=== PATIENT | female | born 1970 | race Caucasian/White ===

== ENCOUNTER 2016-10-23 08:24 | Outpatient (CLI) | payer BC | END 2016-10-23 08:25 | disposition home or self-care (01) | DX: Z12.31 Encounter for screening mammogram for malignant neoplasm of breast (principal) ==

== ENCOUNTER 2016-11-19 10:55 | Outpatient (CLI) | payer BC | END 2016-11-19 10:56 | disposition home or self-care (01) | DX: R10.13 Epigastric pain (principal) ==

== ENCOUNTER 2017-02-04 11:20 | Outpatient (CLI) | payer BC | END 2017-02-04 11:21 | LOC: LAB.WCP 11:20 | PROVIDERS: ATTEND Physician Assistant Medical | DX: R39.15 Urgency of urination (principal) | CPT/HCPCS: 87086 ==

== ENCOUNTER 2017-10-21 17:47 | Outpatient (CLI) | payer BC ==
[2017-10-21] MEDS ORDERED: IOPAMIDOL-300 100 ML VIAL ONE (18:06)
[2017-10-21] MEDS ORDERED: IOPAMIDOL-300 100 ML VIAL IVP ONE (18:36)
--- NOTE | 2017-10-21 20:00 | CT Preliminary Report ---
Exam: CT HEAD W/WO Impression: 1. Unremarkable head CT. No evidence of hemorrhage, space-occupying mass lesion, dural venous sinus t hrombosis or other intracranial cause for headaches. 2. There is sclerosis in the mastoids bilaterally, possibly representing the sequela of prior infecti on. No imaging findings are concerning for active mastoiditis or otitis media. SITE ID: [id number]
--- NOTE | 2017-10-21 20:33 | CT Report ---
CT HEAD WITHOUT AND WITH CONTRAST INDICATION: 46-year-old female with headache (right side of head behind the ear) since Thursday at 060 0 hrs. Concern for possible mastoiditis. TECHNIQUE: Sequential 5 mm axial images were obtained through the brain, prior to and following intravenous admi nistration of 80 mL Isovue-[address] contrast. In accordance with CT protocol optimization, one or more of the following dose reduction techniques w ere utilized for this exam: automated exposure control, adjustment of mA and/or KV based on patient s ize, or use of iterative reconstructive technique. COMPARISON: None. FINDINGS: Ventricular size is normal. Attenuation of cortex and white matter appears normal. No intracranial he morrhage or abnormal extra-axial fluid collection. No mass-effect or midline shift. No enhancing space-occupying mass lesion is demonstrated. There appears to be normal intravascular co ntrast enhancement in the dural venous sinuses and deep venous structures. This effectively excludes the possibility of venous thrombosis. The skull and skull base appear intact. The right mastoid is poorly pneumatized. There is sclerosis, laterally and inferiorly, possibly representing the sequela of a prior infection. No significant effu emerson is demonstrated. No evidence of bone destruction, overlying soft tissue swelling or other specif ic finding to suggest active infection. The middle ear cavity appears clear. There is sclerosis later ally in the left mastoid, also possibly the sequela of a prior infection. The left mastoid is better pneumatized than the right mastoid. The air cells are clear. The left middle ear cavity appears clear . The paranasal sinuses are clear. Noted, is a small sclerotic focus in the medullary bone of the neck for the condyle for right hemiman dible (see image 7 of series 4 and image 19 of series 9) most likely representing a benign bone islan d. The possibility of a blastic-type metastasis is considered unlikely unless there is a history of k nown, primary malignancy in this patient. IMPRESSION: 1. Unremarkable head CT. No evidence of a hemorrhage, space-occupying mass lesion, dural venous sinus thrombosis or other intracranial cause for headaches. 2. There is sclerosis in the mastoids bilaterally, possibly representing the sequela of prior infecti on. No imaging findings concerning for active mastoiditis or otitis media. The call report notification system was initiated by Dr. Zack Das at 19:51 hrs on 10/21/17. A preliminary report for this examination was called to Tiffany Hector PA-C, following interpretat ion on 10/21/2017 at approximately 1956 hrs. Referring Provider Line: [phone] SITE ID: [id number]
== END 2017-10-21 17:48 | disposition home or self-care (01) ==
LOC: DI 17:47
PROVIDERS: ATTEND Physician Assistant Medical
DX: R51 Headache (principal)
CPT/HCPCS: 70470; Q9967

== ENCOUNTER 2020-01-30 16:54 | Outpatient (CLI) | payer BC | END 2020-01-30 16:55 | disposition EMS.NT | LOC: EMS 16:54 | PROVIDERS: ATTEND Surgery | DX: R10.10 Upper abdominal pain, unspecified (principal) ==

== ENCOUNTER 2020-02-01 12:20 | Outpatient (CLI) | payer BC ==
[2020-02-01 12:42] LABS: BASOPHILS % (AUTO) 0.6 %; EOSINOPHILS # (AUTO) 0.1 10^3/uL (0.0-0.7); EOSINOPHILS % (AUTO) 1.4 %; HGB - HEMOGLOBIN 14.3 g/dL (12.0-16.0); LYMPHOCYTES # (AUTO) 1.8 10^3/uL (1.5-3.5); LYMPHOCYTES % (AUTO) 27.1 %; MEAN CORPUSCULAR HEMOGLOBIN 32.1 pg (27.0-31.0); MEAN CORPUSCULAR HGB CONC 34.1 g/dL (32.0-36.0); MEAN CORPUSCULAR VOLUME 93.9 fL (81.0-99.0); MEAN PLATELET VOLUME 9.5 fL (7.9-10.8); MONOCYTES # (AUTO) 0.3 10^3/uL (0.0-1.0); MONOCYTES % (AUTO) 4.8 %; NEUTROPHILS # (AUTO) 4.3 10^3/uL (1.5-6.6); NEUTROPHILS % (AUTO) 65.6 %; PLT - PLATELET COUNT 269 10^3/uL (130-450); RED BLOOD COUNT 4.46 10^6/uL (4.20-5.40); RED CELL DISTRIBUTION WIDTH 12.9 % (12.0-15.0); WHITE BLOOD COUNT 6.5 x10^3/uL (4.8-10.8)
[2020-02-01 13:00] LABS: ALBUMIN 4.2 g/dL (3.2-5.5); ALBUMIN/GLOBULIN RATIO 1.2 (1.0-2.2); CALCIUM 8.8 mg/dL (8.5-10.3); CREATININE 0.9 mg/dL (0.4-1.0); TOTAL PROTEIN 7.7 g/dL (6.7-8.2)
[2020-02-01] MEDS ORDERED: IOVERSOL 320 100 ML VIAL IVP ONE ×2 (13:12→16:33)
--- NOTE | 2020-02-01 13:46 | CT Report ---
PROCEDURE: ABDOMEN W INDICATIONS: EPIGASTRIC,RUQ PAIN CONTRAST: IV CONTRAST: Optiray 320 ml: 100 PO CONTRAST: *NO PO CONTRAST TECHNIQUE: After the administration of oral and intravenous contrast, 5 mm thick sections acquired from the diap hragms to the iliac crests. 5 mm thick coronal and sagittal reformats were acquired. For radiation dose reduction, the following was used: automated exposure control, adjustment of mA and/or kV accor ding to patient size. COMPARISON: CT abdomen dated 02/20/2015. FINDINGS: Image quality: Excellent. Lung bases: Lung bases are clear. Heart size is normal. Solid organs: Spleen is unremarkable. Hepatic steatosis. Unchanged nonspecific hepatic calcification seen in the right lobe for example image 19/3. Gallbladder contains multiple gallstones although no definite gallbladder wall thickening or perichol ecystic inflammatory changes identified. Air-filled presumed incidental duodenal diverticulum. Biliary system is non dilated. Pancreas enhan schuyler normally. No adrenal nodules. Kidneys are normal in size, without hydronephrosis. Peritoneum and bowel: Contrast enhanced bowel loops appear normal in caliber. No free fluid or air. Nodes and vessels: No retroperitoneal or mesenteric adenopathy by size criteria. Aorta and inferior vena cava are normal in size. Bones: No suspicious bony lesions. No vertebral body compression fractures. Small fat-containing periumbilical hernia. IMPRESSION: Cholelithiasis however no other CT evidence of acute cholecystitis. Please correlate clinically and with LFTs. Hepatic steatosis Additional chronic and incidental findings as above. Reviewed by: Earle Banuelos MD on 02/01/2020 1:45 PM PDT Approved by: Earle Banuelos MD on 02/01/2020 1:45 PM PDT Station ID: [id number]
== END 2020-02-01 12:21 | disposition home or self-care (01) ==
LOC: DI 12:20
PROVIDERS: ATTEND Physician Assistant
DX: K80.20 Calculus of gallbladder without cholecystitis without obstruction (principal); K76.0 Fatty (change of) liver, not elsewhere classified
CPT/HCPCS: 36415; 74160; 80053; 83690; 85025; Q9967

== ENCOUNTER 2020-03-09 12:42 | Outpatient (CLI) | payer BC | END 2020-03-09 12:43 | disposition home or self-care (01) | LOC: LAB 12:42 | PROVIDERS: ATTEND Surgery | DX: Z01.812 Encounter for preprocedural laboratory examination (principal); K81.9 Cholecystitis, unspecified; Z20.828 Contact with and (suspected) exposure to other viral communicable diseases ==

== ENCOUNTER 2020-03-13 09:22 | Day surgery (SDC) | payer BC ==
[2020-03-13] MEDS ORDERED: LACTATED RINGERS 1,000 ML IV ONE ×2 (09:25→12:33)
[2020-03-13] MEDS ORDERED: CEFAZOLIN SODIUM IN 0.9 % NACL 2 GM/100 ML BAG IV ONE (09:35)
[2020-03-13] MEDS ORDERED: BUPIVACAINE 0.25% PF 30 ML VIAL ONE (10:04)
--- NOTE | 2020-03-13 10:04 | ANESTHESIA ---
Pre-Anesthesia VS, & Labs - Diagnosis chronic cholecystitis - Procedure lap zeina Vital Signs: Temp Pulse Resp BP Pulse Ox 36.4 C L 66 12 122/78 99 03/13/20 09:33 03/13/20 09:33 03/13/20 09:33 03/13/20 09:33 03/13/20 09:33 Height 5 ft 7 in Weight (kg) 83.8 kg Body Mass Index 26.6 - NPO >8 hours - Is Patient ?: No Home Medications and Allergies Home Medications: Ambulatory Orders Loratadine [Allergy Relief] 10 mg PO DAILY 03/05/20 estradioL [Estradiol] 1 mg PO DAILY 03/05/20 Triamterene/Hydrochlorothiazid [Triamterene-Hctz 37.5-25 mg Cp] 1 each PO DAILY 07/02/15 Loratadine [Allergy Relief] 10 mg PO DAILY 03/05/20 estradioL [Estradiol] 1 mg PO DAILY 03/05/20 Allergies/Adverse Reactions: Allergies Allergy/AdvReac Type Severity Reaction Status Date / Time hydrocodone bitartrate * Allergy Intermediate Nausea Verified 10/12/13 07:15 [From Vicodin] propoxyphene napsylate * Allergy Mild Nausea Verified 10/12/13 07:15 [From Darvocet-N 100] Anes History & Medical History - Anesthetic History Anesthesia Complications: reports: Post-Operative Nausea/Vomiting, Slow wake-up - Medical History Cardiovascular: reports: None, Other (lower extremety edema) Pulmonary: reports: None Gastrointestinal: reports: None Urinary: reports: None Neuro: reports: None Musculoskeletal: reports: None Endocrine/Autoimmune: reports: None Blood Disorders: reports: None Skin: reports: None Smoking Status: Never smoker Psychosocial: reports: No issues indicated - Surgical History Eyes Ears Nose Throat (EENT): Tonsil/Adenoidectomy Gynecologic: Hysterectomy, Oophrectomy Exam General: Alert, Oriented x3, Cooperative, No acute distress Dental: WNL Mouth Openin Fingerbreadth Neck Mobility: Normal Mallampati classification: II Thyromental Distance: 4-6 cm Respiratory: Lungs clear, Normal breath sounds, No respiratory distress, No accessory muscle use Cardiovascular: Regular rate, Normal S1, Normal S2, No murmurs Mental/Cognitive Status: Alert/Oriented X3, Normal for patient Plan Anesthesia Type: General Consent for Procedure(s) Verified and Reviewed: Yes Code Status: Attempt Resuscitation ASA classification: 1-Healthy patient Is this case an emergency?: No
[2020-03-13] MEDS ORDERED: BUPIVACAINE 0.25% PF 30 ML VIAL SUBQ ONE ×2 (10:13→12:09)
[2020-03-13] MEDS ORDERED: MIDAZOLAM 2 MG/2 ML VIAL IVP ONE (11:00)
[2020-03-13] MEDS ORDERED: ONDANSETRON 4 MG/2 ML VIAL IVP ONE (11:00)
[2020-03-13] MEDS ORDERED: SCOPOLAMINE PATCH TOP ONE (11:00)
[2020-03-13] MEDS ORDERED: ROCURONIUM 50 MG/5 ML VIAL IVP ONE (11:00)
[2020-03-13] MEDS ORDERED: LIDOCAINE-MPF 2% 5 ML VIAL IM ONE (11:00)
[2020-03-13] MEDS ORDERED: DEXAMETHASONE 4 MG/ML VIAL IVP ONE (11:00)
[2020-03-13] MEDS ORDERED: NEOSTIGMINE 1 MG/1 ML 10 ML MDV IVP ONE (11:00)
[2020-03-13] MEDS ORDERED: GLYCOPYRROLATE 1 MG/5 ML VIAL IVP ONE (11:00)
[2020-03-13] MEDS ORDERED: PROPOFOL 200 MG/20 ML VIAL IVP ONE (11:00)
[2020-03-13] MEDS ORDERED: fentaNYL 100 MCG/2 ML VIAL IVP ONE (11:00)
[2020-03-13] MEDS ORDERED: KETOROLAC 30 MG/ML VIAL IVP ONE (11:00)
[2020-03-13] MEDS ORDERED: ACETAMINOPHEN 1,000 MG/100 ML 100 ML IV ONE (11:00)
[2020-03-13] MEDS ORDERED: oxyCODONE 5 MG TABLET PO PRN (12:44)
[2020-03-13] MEDS ORDERED: ONDANSETRON 4 MG/2 ML VIAL IVP PRN (12:44)
[2020-03-13] MEDS: fentaNYL 100 MCG/2 ML VIAL ONE ×2 (12:51→12:56)
[2020-03-13] MEDS ORDERED: ONDANSETRON 4 MG/2 ML VIAL ONE (13:20)
[2020-03-13] MEDS ORDERED: oxyCODONE 5 MG TABLET ONE (13:21)
[2020-03-13 14:05] VITALS: BP 114/75
== END 2020-03-13 09:23 | disposition home or self-care (01) ==
LOC: SDS 09:22
PROVIDERS: ATTEND Surgery
PROC: 0FT44ZZ Resection of Gallbladder, Percutaneous Endoscopic Approach (ICD-10-PCS; principal; 2020-03-13 10:30)
DX: K80.10 Calculus of gallbladder with chronic cholecystitis without obstruction (principal)
CPT/HCPCS: 47562; A9270; J0131; J0690; J3490; J7120

== ENCOUNTER 2021-03-08 08:00 | Outpatient (CLI) | payer BC ==
[2021-03-08 12:34] LABS: ALBUMIN 3.7 g/dL (3.2-5.5); ALBUMIN/GLOBULIN RATIO 1.3 (1.0-2.2); BILIRUBIN,TOTAL 0.7 mg/dL (0.2-1.0); CALCIUM 8.9 mg/dL (8.5-10.3); CREATININE 0.9 mg/dL (0.4-1.0); POTASSIUM 3.8 mmol/L (3.5-5.0); TOTAL PROTEIN 6.6 g/dL (6.7-8.2); URIC ACID 6.9 mg/dL (2.6-7.2)
== END 2021-03-08 23:59 | disposition home or self-care (01) ==
LOC: LAB.WCP 08:00
PROVIDERS: ATTEND Physician Assistant Medical
DX: Z00.00 Encounter for general adult medical examination without abnormal findings (principal); M79.674 Pain in right toe(s)
CPT/HCPCS: 36415; 80053; 84550

== ENCOUNTER 2021-03-13 08:26 | Outpatient (CLI) | payer BC ==
--- NOTE | 2021-03-14 12:11 | Mammography Report ---
BILATERAL DIGITAL SCREENING MAMMOGRAM 3D/2D: 03/13/2021 CLINICAL: Routine screening. Comparison is made to exams dated: 10/23/2016 mammogram and 10/01/2015 mammogram - [facility]. The tissue of both breasts is heterogeneously dense. This may lower the sensitivity of arvin mography. No significant masses, calcifications, or other findings are seen in either breast. There has been no significant interval change. IMPRESSION: NEGATIVE There is no mammographic evidence of malignancy. A 1 year screening mammogram is recommended. This exam was interpreted at Station ID: [id number]. NOTE: For mammograms, a report in lay terms will be sent to the patient. Approximately 15% of breast malignancies will not be visualized mammographically. In the management of a palpable breast mass, a negative mammogram must not discourage biopsy of a clinically suspicious lesion. Electronically Signed By: Rashawn Belle M.D. ar/ariella:03/13/2021 09:11:10 ACR BI-RADS Category 1: Negative 3341F PARENCHYMAL PATTERN: (D) - The breast(s) demonstrate(s) heterogeneously dense fibroglandular chad regalado. BI-RADS CATEGORY: (1) - 1 RECOMMENDATION: (ANNUAL) - Recommend routine annual screening mammography. [id number] 1 year screening LATERALITY: (B)
== END 2021-03-13 08:27 | disposition home or self-care (01) ==
LOC: DI.N 08:26
DX: Z12.31 Encounter for screening mammogram for malignant neoplasm of breast (principal)

== ENCOUNTER 2021-04-19 08:00 | Outpatient (CLI) | payer BC | END 2021-04-19 23:59 | disposition home or self-care (01) | LOC: LAB.WCP 08:00 | PROVIDERS: ATTEND Physician Assistant Medical | DX: N39.0 Urinary tract infection, site not specified (principal) | CPT/HCPCS: 87086 ==

== ENCOUNTER 2021-05-16 10:49 | Outpatient (CLI) | payer BC ==
[2021-05-16 18:01] LABS: CREATININE 0.9 mg/dL (0.4-1.0); POTASSIUM 3.8 mmol/L (3.5-5.0)
== END 2021-05-16 10:50 | disposition home or self-care (01) ==
LOC: LAB.N 10:49
PROVIDERS: ATTEND Physician Assistant Medical
DX: R60.9 Edema, unspecified (principal); N39.0 Urinary tract infection, site not specified
CPT/HCPCS: 36415; 80048; 87086

== ENCOUNTER 2022-06-19 10:09 | Outpatient (CLI) | payer BC ==
[2022-06-19 13:03] LABS: CALCIUM 9.5 mg/dL (8.5-10.3); CREATININE 0.9 mg/dL (0.4-1.0); POTASSIUM 3.8 mmol/L (3.5-5.0)
== END 2022-06-19 10:10 | disposition home or self-care (01) ==
LOC: LAB.N 10:09
PROVIDERS: ATTEND Physician Assistant Medical
DX: Z79.899 Other long term (current) drug therapy (principal)
CPT/HCPCS: 36415; 80048

== ENCOUNTER → 2022-11-27 13:03 | Outpatient (CLI) | payer BC ==
--- NOTE | 2022-11-27 10:01 | XRAY Report ---
PROCEDURE: Knee 4 View LT INDICATIONS: LEFT KNEE PAIN TECHNIQUE: 4 views of the left knee(s) were acquired. COMPARISON: None. FINDINGS: Bones: No fractures or dislocations. No suspicious bony lesions. Soft tissues: No effusion. No suspicious soft tissue calcifications or masses. IMPRESSION: No evidence acute bony abnormality of the left knee. If clinical suspicion and/or symptoms persist, further assessment with repeat plain films or advanced imaging (e.g., CT, MRI, or bone scan) may be helpful for further assessment. Reviewed by: Kostas Armando MD on 11/27/2022 10:00 AM PDT Approved by: Kostas Armando MD on 11/27/2022 10:00 AM PDT Station ID: [id number]
== END | disposition home or self-care (01) ==
LOC: DI.WOS 13:03
PROVIDERS: ATTEND Physician Assistant Surgical
DX: M25.562 Pain in left knee (principal)

== ENCOUNTER 2023-04-07 09:11 | Outpatient (CLI) | payer BC ==
[2023-04-07 12:26] LABS: BASOPHILS % (AUTO) 0.8 %; EOSINOPHILS # (AUTO) 0.1 10^3/uL (0.0-0.7); EOSINOPHILS % (AUTO) 2.4 %; HCT - HEMATOCRIT 44.5 % (37.0-47.0); HGB - HEMOGLOBIN 14.4 g/dL (12.0-16.0); LYMPHOCYTES # (AUTO) 1.6 10^3/uL (1.5-3.5); LYMPHOCYTES % (AUTO) 32.5 %; MEAN CORPUSCULAR HEMOGLOBIN 30.3 pg (27.0-31.0); MEAN CORPUSCULAR HGB CONC 32.4 g/dL (32.0-36.0); MEAN CORPUSCULAR VOLUME 93.7 fL (81.0-99.0); MEAN PLATELET VOLUME 11.5 fL (7.9-10.8); MONOCYTES # (AUTO) 0.4 10^3/uL (0.0-1.0); MONOCYTES % (AUTO) 8.1 %; NEUTROPHILS # (AUTO) 2.8 10^3/uL (1.5-6.6); NEUTROPHILS % (AUTO) 55.8 %; PLT - PLATELET COUNT 300 10^3/uL (130-450); RED BLOOD COUNT 4.75 10^6/uL (4.20-5.40)
[2023-04-07 13:04] LABS: ALBUMIN 4.7 g/dL (3.2-5.5); ALBUMIN/GLOBULIN RATIO 1.5 (1.0-2.2); ALKALINE PHOSPHATASE 100 IU/L (42-121); ALT ALANINE AMINOTRANSFERASE 26 IU/L (10-60); AST ASPARTATE AMINOTRANSFERASE 20 IU/L (10-42); BUN - BLOOD UREA NITROGEN 19 mg/dL (6-20); CALCIUM 9.8 mg/dL (8.5-10.3); CARBON DIOXIDE - CO2 32 mmol/L (21-32); CHLORIDE 100 mmol/L (101-111); CHOL/HDL RATIO 5.5 (<4.4); CHOLESTEROL 230 mg/dL; CREATININE 0.9 mg/dL (0.6-1.3); GFR - MDRD 66 (>89); GLUCOSE 92 mg/dL (74-104); HDL CHOLESTEROL 42 mg/dL; LDL CHOLESTEROL,CALCULATED 108 mg/dL; LDL/HDL RATIO 2.6 (<4.4); POTASSIUM 3.8 mmol/L (3.5-4.5); SODIUM 139 mmol/L (135-145); TOTAL PROTEIN 7.8 g/dL (6.4-8.9); TRIGLYCERIDES 399 mg/dL (48-352); VLDL CHOLESTEROL 80 mg/dL
[2023-04-07 13:13] LABS: THYROID STIMULATING HORMONE 1.95 uIU/mL (0.34-5.60)
== END 2023-04-07 09:12 | disposition home or self-care (01) ==
LOC: LAB.N 09:11
PROVIDERS: ATTEND Physician Assistant Medical
DX: Z00.00 Encounter for general adult medical examination without abnormal findings (principal)
CPT/HCPCS: 36415; 80053; 80061; 83721; 84443; 85025

== ENCOUNTER 2023-04-08 10:29 | Outpatient (CLI) | payer BC ==
--- NOTE | 2023-04-09 09:41 | Mammography Report ---
BILATERAL DIGITAL SCREENING MAMMOGRAM 3D/2D: 04/08/2023 CLINICAL: Routine screening. Comparison is made to exams dated: 04/07/2022 mammogram, 03/13/2021 mammogram, 10/23/2016 mammogram, 09/17 mammogram, 08/22/2014 mammogram, and 07/28/2013 mammogram - [facility]. There are scattered areas of fibroglandular density in both breasts (category b / 25%-50% glandular t issue). No significant masses, calcifications, or other findings are seen in either breast. There has been no significant interval change. IMPRESSION: NEGATIVE There is no mammographic evidence of malignancy. A 1 year screening mammogram is recommended. Based on the Tyrer Cuzick model (a risk assessment model) the patients lifetime risk is 12.2% and he r 10 year risk is 3.0%. According to the ACR, ACS, and NCCN guidelines, an annual breast MRI exam jessica ng with mammogram is recommended if the patients lifetime risk is 20% or greater. This exam was interpreted at Station ID: [id number]. NOTE: For mammograms, a report in lay terms will be sent to the patient. Approximately 15% of breast malignancies will not be visualized mammographically. In the management of a palpable breast mass, a negative mammogram must not discourage biopsy of a clinically suspicious lesion. Electronically Signed By: Liang paez/ariella:04/09/2023 08:12:35 letter sent: No_Letter ACR BI-RADS Category 1: Negative 3341F PARENCHYMAL PATTERN: (A) - The breast(s) demonstrate(s) scattered fibroglandular densities. BI-RADS CATEGORY: (1) - 1 Mammogram [id number] 1 year screening LATERALITY: (B)
== END 2023-04-08 10:30 | disposition home or self-care (01) ==
LOC: DI.N 10:29
DX: Z12.31 Encounter for screening mammogram for malignant neoplasm of breast (principal)

== ENCOUNTER 2023-08-19 09:18 | Outpatient (CLI) | payer BC ==
[2023-08-19 13:22] LABS: CALCIUM 9.3 mg/dL (8.5-10.3); CREATININE 0.8 mg/dL (0.6-1.3); POTASSIUM 3.6 mmol/L (3.5-4.5)
== END 2023-08-19 09:19 | disposition home or self-care (01) ==
LOC: LAB.N 09:18
PROVIDERS: ATTEND Physician Assistant Medical
DX: R60.9 Edema, unspecified (principal)
CPT/HCPCS: 36415; 80048

== ENCOUNTER 2024-01-19 10:00 | Outpatient (CLI) | payer BC ==
--- NOTE | 2024-01-19 11:08 | XRAY Report ---
PROCEDURE: Ankle 3+V LT INDICATIONS: ANKLE PAIN, LEFT TECHNIQUE: 3 views of the ankle were acquired. COMPARISON: X-ray left foot 12/07/2017 FINDINGS: Bones: No fractures or dislocations. Ankle mortise is normally aligned. No suspicious bony lesions . Soft tissues: No tibiotalar joint effusion. Achilles tendon appears normal. IMPRESSION: No visualized acute fracture or dislocation. However, occult injury cannot be excluded. Recommend kameron rt interval imaging follow-up in 7-10 days as clinically indicated for additional evaluation. Reviewed by: Elsy Lares MD on 01/19/2024 11:07 AM PDT Approved by: Elsy Lares MD on 01/19/2024 11:07 AM PDT Station ID: [id number]
== END 2024-01-19 10:15 | disposition home or self-care (01) ==
LOC: DI.N 10:00
PROVIDERS: ATTEND Family Medicine
DX: M25.572 Pain in left ankle and joints of left foot (principal)